=== PATIENT | male | born 1955 | race Caucasian/White ===

== ENCOUNTER 2020-07-28 09:51 | Emergency (ER) | payer MEDICARE ==
[~2020-07-28] VITALS: Ht 170.2 cm; Wt 79.5 kg
[2020-07-28 10:14] VITALS: BP 125/88
[2020-07-28] MEDS ORDERED: acetaminophen 325mg tablet PO ONE (11:15)
[2020-07-28] MEDS ORDERED: ibuprofen tablet 400 MG TABLET PO ONE (11:15)
[2020-07-28] MEDS ORDERED: ibuprofen 200mg tablet PO ONE (11:25)
== END 2020-07-28 11:37 | disposition home or self-care (01) ==
LOC: ER 09:52
DX: M25.561 Pain in right knee (principal)
CPT/HCPCS: 73564; 99284

== ENCOUNTER 2020-09-16 11:38 | Emergency (ER) | payer MEDICARE ==
[~2020-09-16] VITALS: Ht 177.8 cm; Wt 81.8 kg
[2020-09-16 11:42] VITALS: BP 145/77
== END 2020-09-16 14:42 | disposition home or self-care (01) ==
LOC: ER 11:38
DX: T69.9XXA Effect of reduced temperature, unspecified, initial encounter (principal); W19.XXXA Unspecified fall, initial encounter; Y93.89 Activity, other specified; Y92.89 Other specified places as the place of occurrence of the external cause; Y99.8 Other external cause status
CPT/HCPCS: 99284

== ENCOUNTER 2021-04-17 09:12 | Inpatient (IN) | payer MEDICARE, MEDICAID ==
[~2021-04-17] VITALS: Ht 172.7 cm; Wt 81.8 kg
[~2021-04-17 09:12] MED LIST: LACT1CAP26 PO
[2021-04-17] MEDS ORDERED: acetaminophen 325mg tablet PO ONE (10:40)
[2021-04-17 11:25] LABS: BASOPHILS # (AUTO) 0.1 X10'3 (0-0.2); BASOPHILS % (AUTO) 0.3 % (0-1); EOSINOPHILS % (AUTO) 0 % (0-6); HEMATOCRIT 44.4 % (42.0-52.0); HEMOGLOBIN 15.3 g/dl (14.0-17.9); LYMPHOCYTES # (AUTO) 0.5 X10'3 (1.1-4.8); LYMPHOCYTES % (AUTO) 2.1 % (21-51); MEAN CORPUSCULAR HEMOGLOBIN 31.1 PG (27.0-31.0); MEAN CORPUSCULAR HGB CONC 34.5 g/dL (33.0-36.5); MEAN PLATELET VOLUME 6.7 FL (7.4-10.4); MONOCYTES # (AUTO) 1.1 X10'3 (0-0.9); MONOCYTES % (AUTO) 4.4 % (2-12); NEUTROPHILS # (AUTO) 23.3 X10'3 (1.8-7.7); NEUTROPHILS % (AUTO) 93.2 % (42-75); PLATELET COUNT 359 X10'3 (140-440); RED BLOOD COUNT 4.93 X10'6 (4.70-6.10); RED CELL DISTRIBUTION WIDTH 13.8 % (11.5-14.5)
[2021-04-17] MEDS ORDERED: normal saline 1000ML IV soln IVB ONE ×2 (11:35)
[2021-04-17] MEDS ORDERED: CefTRIAXone/D5W-Rocephin 1gm 50 ML IV ONE ×2 (11:35→13:00)
[2021-04-17 11:39] LABS: ALANINE AMINOTRANSFERASE 24 U/L (12-78); ALBUMIN 4.2 G/DL (3.4-5.0); ALBUMIN/GLOBULIN RATIO 0.9 (1.1-1.5); ALKALINE PHOSPHATASE 64 IU/L (46-116); ANION GAP 13 (8-16); ASPARTATE AMINO TRANSFERASE 17 U/L (10-37); BILIRUBIN,TOTAL 0.7 MG/DL (0.1-1.0); BLOOD UREA NITROGEN 23 MG/DL (7-18); BUN/CREATININE RATIO 15.5 (5.4-32.0); CALCIUM 9.4 MG/DL (8.5-10.1); CHLORIDE 93 MMOL/L (99-107); CREATININE 1.48 MG/DL (0.60-1.10); GLUCOSE 153 MG/DL (70-104); POTASSIUM 4.6 MMOL/L (3.5-5.1); SODIUM 130 MMOL/L (135-145); eGFR 47 ML/MIN
[2021-04-17] MEDS ORDERED: vancomycin/NS 1 GM ADD-VANTAGE 250 ML X 1 DOSE IV ONE (12:45)
[2021-04-17] MEDS ORDERED: METF-950 PO (12:45)
[2021-04-17] MEDS ORDERED: MEMA10TA56 PO (12:45)
[2021-04-17] MEDS ORDERED: LISI20TA28 PO (12:45)
[2021-04-17] MEDS ORDERED: acetaminophen 325mg tablet PO PRN (12:50)
[2021-04-17] MEDS ORDERED: magnesium hydroxide 30ml (MOM) UD suspension PO PRN (12:50)
[2021-04-17] MEDS ORDERED: ondansetron/PF 4mg/2ml inj IV PRN (12:50)
[2021-04-17] MEDS ORDERED: mag hydrox/Alum hydrox/simeth 30ml oral suspension PO PRN (12:50)
[2021-04-17] MEDS ORDERED: potassium Cl 20 mEq SR tablet PO PRN ×2 (12:50)
[2021-04-17] MEDS ORDERED: potassium Cl 40MEQ/1/2NS 520ml 520 ML IV PRN ×2 (12:50)
[2021-04-17 13:02] LABS: CLARITY,URINE CLEAR (Clear); COLOR,URINE YELLOW (Yellow); GLUCOSE, URINE NEGATIVE (Neg); KETONES,URINE NEGATIVE (Neg); LEUKOCYTE ESTERASE ,URINE NEGATIVE (Neg); NITRITES, URINE NEGATIVE (Neg); OCCULT BLOOD,URINE MODERATE (Neg); PH,URINE 5.5 (4.8-8.0); PROTEIN,URINE 100 mg/dl (Neg)
[2021-04-17 13:07] LABS: UA COLLECTION TYPE NON-SPECIFIED
[2021-04-17 13:12] LABS: HYALINE CASTS 0-3 /LPF (NEGATIVE)
[2021-04-17 13:13] LABS: BACTERIA,URINE NONE SEEN /HPF (Neg); MUCUS STRANDS MODERATE /LPF (Neg); SQUAMOUS EPITHELIAL CELL,UR FEW /LPF (FEW); WBC,URINE 0-4 /HPF (0-4)
[2021-04-17] MEDS ORDERED: cyanocobalamin 1,000 mcg/ml inj IM ONE (13:20)
[2021-04-17] MEDS: normal saline 1000ml 1,000 ML IV SCH ×2 (15:21→22:50)
[2021-04-17] MEDS: memantine 5mg tablet PO SCH (19:28)
[2021-04-17] MEDS: docusate sod 100mg capsule PO SCH (19:28)
[2021-04-17] MEDS: heparin, porcine 5000 units/ml vial SQ SCH (19:29)
[2021-04-17] MEDS: K and/or MAG REPLACEMENT MC SCH (19:30)
[2021-04-18 06:57] LABS: BASOPHILS % (AUTO) 0.2 % (0-1); EOSINOPHILS % (AUTO) 0 % (0-6); HEMATOCRIT 36.9 % (42.0-52.0); HEMOGLOBIN 13.1 g/dl (14.0-17.9); LYMPHOCYTES # (AUTO) 0.9 X10'3 (1.1-4.8); LYMPHOCYTES % (AUTO) 5.9 % (21-51); MEAN CORPUSCULAR HEMOGLOBIN 31.4 PG (27.0-31.0); MEAN CORPUSCULAR HGB CONC 35.4 g/dL (33.0-36.5); MEAN CORPUSCULAR VOLUME 88.5 FL (78-98); MEAN PLATELET VOLUME 6.9 FL (7.4-10.4); MONOCYTES # (AUTO) 0.8 X10'3 (0-0.9); MONOCYTES % (AUTO) 5.2 % (2-12); NEUTROPHILS # (AUTO) 13.8 X10'3 (1.8-7.7); NEUTROPHILS % (AUTO) 88.7 % (42-75); PLATELET COUNT 256 X10'3 (140-440); RED BLOOD COUNT 4.17 X10'6 (4.70-6.10); RED CELL DISTRIBUTION WIDTH 13.8 % (11.5-14.5); WHITE BLOOD COUNT 15.6 X10'3 (4.5-11.0)
[2021-04-18 07:03] LABS: ALANINE AMINOTRANSFERASE 19 U/L (12-78); ALBUMIN 3.3 G/DL (3.4-5.0); ALBUMIN/GLOBULIN RATIO 0.8 (1.1-1.5); ALKALINE PHOSPHATASE 60 IU/L (46-116); ANION GAP 9 (8-16); ASPARTATE AMINO TRANSFERASE 14 U/L (10-37); BILIRUBIN,TOTAL 0.6 MG/DL (0.1-1.0); BLOOD UREA NITROGEN 17 MG/DL (7-18); CALCIUM 8.8 MG/DL (8.5-10.1); CHLORIDE 97 MMOL/L (99-107); CREATININE 1.21 MG/DL (0.60-1.10); GLUCOSE 122 MG/DL (70-104); POTASSIUM 4.2 MMOL/L (3.5-5.1); SODIUM 131 MMOL/L (135-145); TOTAL CARBON DIOXIDE 24.8 MMOL/L (24-32); TOTAL PROTEIN 7.3 G/DL (6.4-8.2); eGFR 60 ML/MIN
[2021-04-18] MEDS: normal saline 1000ml 1,000 ML IV SCH (08:50)
[2021-04-18] MEDS: lisinopril 20mg tablet PO SCH (10:54)
[2021-04-18] MEDS: CefTRIAXone/D5W-Rocephin 1gm 50 ML IV SCH (10:55)
[2021-04-18] MEDS: docusate sod 100mg capsule PO SCH ×2 (10:55→23:44)
[2021-04-18] MEDS: heparin, porcine 5000 units/ml vial SQ SCH ×2 (10:59→23:43)
[2021-04-18] MEDS: vancomycin/NS 1 GM ADD-VANTAGE 250 ML IV SCH ×2 (11:00→23:41)
[2021-04-18] MEDS: memantine 5mg tablet PO SCH ×2 (11:09→23:43)
[2021-04-18] MEDS: K and/or MAG REPLACEMENT MC SCH ×2 (11:09→20:00)
--- NOTE | 2021-04-18 12:45 | NUR ---
PATIENT IN BED RR EVEN UN LABORED NO OBSERVABLE S/S OF ACUTE STRESS AT THIS TIME WILL CONTINUE TO MONITOR DENIES PAIN
[2021-04-18] MEDS ORDERED: vancomycin/NS 1 GM ADD-VANTAGE 250 ML IV SCH (13:00)
--- NOTE | 2021-04-18 14:00 | NUR ---
pATIENT HAD 100% LUNCH PATIENT HAS NO CONCERNS AT THIS TIME WILL CONTINUE TO MONITOR
--- NOTE | 2021-04-18 15:21 | NUR ---
PATIENT bg 119 GLUCOMETER REQUESTED A DOWNTIME OVERRIDE FORM FILLED OUT COMPLETE PATIEN THAS NO OBSERVABLE S/S OF ACUTE STRESS/PAIN AT THIS TIME WILL CONTINUE TO MONITOR
[2021-04-18] MEDS: lactobacillus rhamnosus 10,000 MMU CELLS/CAPSULE PO SCH (23:44)
--- NOTE | 2021-04-19 01:52 | NUR ---
pt awake at this time, given urinal as requested.
[2021-04-19 04:33] LABS: BASOPHILS % (AUTO) 0.5 % (0-1); EOSINOPHILS # (AUTO) 0.1 X10'3 (0-0.9); EOSINOPHILS % (AUTO) 0.7 % (0-6); HEMATOCRIT 33.5 % (42.0-52.0); HEMOGLOBIN 11.6 g/dl (14.0-17.9); LYMPHOCYTES # (AUTO) 0.9 X10'3 (1.1-4.8); LYMPHOCYTES % (AUTO) 9.7 % (21-51); MEAN CORPUSCULAR HEMOGLOBIN 31.1 PG (27.0-31.0); MEAN CORPUSCULAR HGB CONC 34.5 g/dL (33.0-36.5); MEAN CORPUSCULAR VOLUME 90.3 FL (78-98); MEAN PLATELET VOLUME 7.2 FL (7.4-10.4); MONOCYTES # (AUTO) 0.6 X10'3 (0-0.9); MONOCYTES % (AUTO) 6.5 % (2-12); NEUTROPHILS # (AUTO) 7.7 X10'3 (1.8-7.7); NEUTROPHILS % (AUTO) 82.6 % (42-75); PLATELET COUNT 236 X10'3 (140-440); RED BLOOD COUNT 3.71 X10'6 (4.70-6.10); RED CELL DISTRIBUTION WIDTH 13.8 % (11.5-14.5); WHITE BLOOD COUNT 9.4 X10'3 (4.5-11.0)
[2021-04-19 04:56] LABS: ALANINE AMINOTRANSFERASE 23 U/L (12-78); ALBUMIN 2.7 G/DL (3.4-5.0); ALBUMIN/GLOBULIN RATIO 0.7 (1.1-1.5); ALKALINE PHOSPHATASE 58 IU/L (46-116); ANION GAP 11 (8-16); ASPARTATE AMINO TRANSFERASE 18 U/L (10-37); BILIRUBIN,TOTAL 0.5 MG/DL (0.1-1.0); BLOOD UREA NITROGEN 15 MG/DL (7-18); BUN/CREATININE RATIO 15.3 (5.4-32.0); CHLORIDE 98 MMOL/L (99-107); CREATININE 0.98 MG/DL (0.60-1.10); GLUCOSE 101 MG/DL (70-104); POTASSIUM 3.9 MMOL/L (3.5-5.1); SODIUM 131 MMOL/L (135-145); TOTAL CARBON DIOXIDE 21.9 MMOL/L (24-32); TOTAL PROTEIN 6.6 G/DL (6.4-8.2); eGFR 76 ML/MIN
[2021-04-19] MEDS: K and/or MAG REPLACEMENT MC SCH ×2 (08:00→20:00)
[2021-04-19] MEDS: CefTRIAXone/D5W-Rocephin 1gm 50 ML IV SCH (08:00)
[2021-04-19] MEDS: docusate sod 100mg capsule PO SCH ×2 (12:14→21:11)
[2021-04-19] MEDS: memantine 5mg tablet PO SCH ×2 (12:16→21:13)
[2021-04-19] MEDS: lisinopril 20mg tablet PO SCH ×2 (12:16→21:12)
[2021-04-19] MEDS: heparin, porcine 5000 units/ml vial SQ SCH ×2 (12:20→21:14)
[2021-04-19] MEDS: vancomycin/NS 1 GM ADD-VANTAGE 250 ML IV SCH (12:20)
[2021-04-19] MEDS: lactobacillus rhamnosus 10,000 MMU CELLS/CAPSULE PO SCH ×2 (12:54→21:13)
[2021-04-19 13:40] VITALS: BP 138/78
[2021-04-19] MEDS: normal saline 1000ml 1,000 ML IV SCH ×2 (14:50→17:07)
--- NOTE | 2021-04-19 15:17 | NUR ---
Per Madelaine LOPEZ at [facility] (took over the care from ER), the Rocephin IV dose this am was already given. Patient came to the unit with the Vanco IV running
--- NOTE | 2021-04-19 18:11 | NUR ---
Patient in room [facility]. I have received report from ALVAREZ LOPEZ and had the opportunity to ask questions and assume patient care. Addendum: 04/19/21 at 1811 by Mona Bunn RN Amended: Links added.
--- NOTE | 2021-04-19 18:19 | NUR ---
Problems reprioritized. Patient report given, questions answered & plan of care reviewed with Mona LOPEZ.
[2021-04-19 19:00] VITALS: BP 124/81
[2021-04-19] MEDS ORDERED: pneumococcal 23-VAL P-sac vacc 25 mcg/0.5ml vial IMVAC ONE (20:00)
--- NOTE | 2021-04-19 21:10 | NUR ---
PT TOOK HS MEDS AND MRSA SWAB DONE AND SAID HE WANTED THE PNEUMONIA VACCINE AND GIVEN TO THE PT ALONG WITH INFORMATION AND TEACHING.
[2021-04-19] MEDS ORDERED: VANCOMYCIN LEVEL IV ONE (22:30)
--- NOTE | 2021-04-19 23:10 | NUR ---
pt awake watching tv no complaints.
[2021-04-20] VITALS: BP 158/86
[2021-04-20] MEDS: vancomycin/NS 1 GM ADD-VANTAGE 250 ML IV SCH (00:01)
[2021-04-20] MEDS: normal saline 1000ml 1,000 ML IV SCH ×4 (00:50→20:50)
--- NOTE | 2021-04-20 01:00 | NUR ---
pt resting eyes closed without changes.
--- NOTE | 2021-04-20 04:40 | NUR ---
resting eyes closed appears comfortable at this time.
--- NOTE | 2021-04-20 06:46 | NUR ---
Problems reprioritized. Patient report given, questions answered & plan of care reviewed with JESSICA WILSON. Addendum: 04/20/21 at 0647 by Mona Bunn RN Amended: Links added.
[2021-04-20 06:49] LABS: BASOPHILS % (AUTO) 0.6 % (0-1); EOSINOPHILS # (AUTO) 0.4 X10'3 (0-0.9); EOSINOPHILS % (AUTO) 5.2 % (0-6); HEMATOCRIT 35.5 % (42.0-52.0); HEMOGLOBIN 12.1 g/dl (14.0-17.9); LYMPHOCYTES # (AUTO) 1.1 X10'3 (1.1-4.8); LYMPHOCYTES % (AUTO) 16.2 % (21-51); MEAN CORPUSCULAR HEMOGLOBIN 30.8 PG (27.0-31.0); MEAN CORPUSCULAR HGB CONC 34.1 g/dL (33.0-36.5); MEAN CORPUSCULAR VOLUME 90.3 FL (78-98); MEAN PLATELET VOLUME 7.1 FL (7.4-10.4); MONOCYTES # (AUTO) 0.8 X10'3 (0-0.9); MONOCYTES % (AUTO) 10.8 % (2-12); NEUTROPHILS # (AUTO) 4.8 X10'3 (1.8-7.7); NEUTROPHILS % (AUTO) 67.2 % (42-75); PLATELET COUNT 252 X10'3 (140-440); RED BLOOD COUNT 3.93 X10'6 (4.70-6.10); RED CELL DISTRIBUTION WIDTH 13.8 % (11.5-14.5); WHITE BLOOD COUNT 7.1 X10'3 (4.5-11.0)
--- NOTE | 2021-04-20 06:53 | NUR ---
Patient in room [facility]. I have received report from RAJ LOPEZ and had the opportunity to ask questions and assume patient care.
[2021-04-20 07:10] LABS: ALANINE AMINOTRANSFERASE 32 U/L (12-78); ALBUMIN 2.8 G/DL (3.4-5.0); ALBUMIN/GLOBULIN RATIO 0.7 (1.1-1.5); ALKALINE PHOSPHATASE 56 IU/L (46-116); ANION GAP 9 (8-16); ASPARTATE AMINO TRANSFERASE 21 U/L (10-37); BILIRUBIN,TOTAL 0.3 MG/DL (0.1-1.0); BLOOD UREA NITROGEN 13 MG/DL (7-18); BUN/CREATININE RATIO 13.5 (5.4-32.0); CALCIUM 8.5 MG/DL (8.5-10.1); CHLORIDE 104 MMOL/L (99-107); CREATININE 0.96 MG/DL (0.60-1.10); GLUCOSE 99 MG/DL (70-104); SODIUM 136 MMOL/L (135-145); TOTAL CARBON DIOXIDE 23.5 MMOL/L (24-32); TOTAL PROTEIN 6.7 G/DL (6.4-8.2); eGFR 78 ML/MIN
[2021-04-20 07:14] VITALS: BP 133/80
[2021-04-20] MEDS: K and/or MAG REPLACEMENT MC SCH ×2 (08:00→20:00)
[2021-04-20 08:07] LABS: HEMOGLOBIN A1C 5.6 % (4.5-6.2)
[2021-04-20] MEDS: memantine 5mg tablet PO SCH ×2 (09:51→20:40)
[2021-04-20] MEDS: lactobacillus rhamnosus 10,000 MMU CELLS/CAPSULE PO SCH ×2 (09:51→20:40)
[2021-04-20] MEDS: docusate sod 100mg capsule PO SCH ×2 (09:51→20:40)
[2021-04-20] MEDS: heparin, porcine 5000 units/ml vial SQ SCH ×2 (09:53→20:40)
[2021-04-20] MEDS: cefazolin/dext.iso 2gm/100ml 100 ML IV SCH ×3 (09:58→23:51)
--- NOTE | 2021-04-20 12:10 | NUR ---
DM consult: Pt with A1c 5.6%, DM education not warranted. Noted pt on a CHO controlled diet. Attempted TC to RN to discuss recommendation for diet advancement to regular given current A1c however RN unavailable, left message with sr community manager. Will continue to follow. Addendum: 04/20/21 at [address] Amended: Links added.
--- NOTE | 2021-04-20 12:11 | NUR ---
DM consult: Pt with A1c 5.6%, down from 7.2% 12/08/20 per EMR, DM education not warranted. Noted pt on a CHO controlled diet. Attempted TC to RN to discuss recommendation for diet advancement to regular given current A1c however RN unavailable, left message with community recreation programmer. Will continue to follow. Addendum: 04/20/21 at [address] Amended: Links added.
[2021-04-20] MEDS: VANCOmycin 1250MG/NS 250ml Bag 250 ML IV SCH (13:07)
[2021-04-20 18:00] VITALS: BP 152/87
[2021-04-20 18:09] VITALS: BP 128/74
--- NOTE | 2021-04-20 19:05 | NUR ---
Patient in room [facility]. I have received report from JESSICA Titus and had the opportunity to ask questions and assume patient care.
[2021-04-21] VITALS: BP 152/94
[2021-04-21] MEDS: VANCOmycin 1250MG/NS 250ml Bag 250 ML IV SCH ×3 (00:59→23:04)
[2021-04-21] MEDS: normal saline 1000ml 1,000 ML IV SCH ×2 (05:33→16:50)
[2021-04-21 06:14] LABS: BASOPHILS % (AUTO) 0.5 % (0-1); EOSINOPHILS # (AUTO) 0.5 X10'3 (0-0.9); EOSINOPHILS % (AUTO) 5.4 % (0-6); HEMATOCRIT 34.8 % (42.0-52.0); LYMPHOCYTES # (AUTO) 1.2 X10'3 (1.1-4.8); LYMPHOCYTES % (AUTO) 13.5 % (21-51); MEAN CORPUSCULAR HEMOGLOBIN 30.8 PG (27.0-31.0); MEAN CORPUSCULAR HGB CONC 34.3 g/dL (33.0-36.5); MEAN CORPUSCULAR VOLUME 89.7 FL (78-98); MONOCYTES % (AUTO) 11.8 % (2-12); NEUTROPHILS # (AUTO) 5.9 X10'3 (1.8-7.7); NEUTROPHILS % (AUTO) 68.8 % (42-75); PLATELET COUNT 253 X10'3 (140-440); RED BLOOD COUNT 3.88 X10'6 (4.70-6.10); RED CELL DISTRIBUTION WIDTH 13.9 % (11.5-14.5); WHITE BLOOD COUNT 8.6 X10'3 (4.5-11.0)
--- NOTE | 2021-04-21 06:35 | NUR ---
Problems reprioritized. Patient report given, questions answered & plan of care reviewed with JESSICA Romero.
[2021-04-21 06:41] LABS: ALANINE AMINOTRANSFERASE 27 U/L (12-78); ALBUMIN 2.7 G/DL (3.4-5.0); ALBUMIN/GLOBULIN RATIO 0.7 (1.1-1.5); ALKALINE PHOSPHATASE 62 IU/L (46-116); ANION GAP 10 (8-16); ASPARTATE AMINO TRANSFERASE 18 U/L (10-37); BILIRUBIN,TOTAL 0.4 MG/DL (0.1-1.0); BLOOD UREA NITROGEN 11 MG/DL (7-18); BUN/CREATININE RATIO 11.7 (5.4-32.0); CALCIUM 8.5 MG/DL (8.5-10.1); CHLORIDE 103 MMOL/L (99-107); CREATININE 0.94 MG/DL (0.60-1.10); GLUCOSE 109 MG/DL (70-104); SODIUM 137 MMOL/L (135-145); TOTAL CARBON DIOXIDE 23.7 MMOL/L (24-32); TOTAL PROTEIN 6.6 G/DL (6.4-8.2); eGFR 80 ML/MIN
[2021-04-21 07:00] VITALS: BP 119/78
[2021-04-21] MEDS: K and/or MAG REPLACEMENT MC SCH ×2 (08:00→19:46)
--- NOTE | 2021-04-21 10:00 | NUR ---
Initial: Pt admit for right leg cellulitis. Currently on a CHO controlled diet documented with 100% PO intake. D/w RN recommendation for diet advancement to regular given A1c 5.6% with BG range 90-153 mg/dL since admit. [facility] 04/20, receiving routine bowel care. No nutrition intervention implemented at this time. Will continue to follow. Recommendations: 1) Advance to regular diet given A1c 5.6% and BG levels well controlled throughout LOS 2) Monitor need for additional protein for satiety 3) Routine bowel care 4) Weekly scaled weights Addendum: 04/21/21 at [address] Amended: Links added.
[2021-04-21 11:00] VITALS: BP 110/72
[2021-04-21] MEDS: heparin, porcine 5000 units/ml vial SQ SCH ×2 (11:46→19:42)
[2021-04-21] MEDS: cefazolin/dext.iso 2gm/100ml 100 ML IV SCH ×2 (11:46→16:12)
[2021-04-21] MEDS: lisinopril 20mg tablet PO SCH (11:46)
[2021-04-21] MEDS: lactobacillus rhamnosus 10,000 MMU CELLS/CAPSULE PO SCH ×2 (11:46→19:41)
[2021-04-21] MEDS: docusate sod 100mg capsule PO SCH ×2 (11:46→19:41)
[2021-04-21] MEDS: memantine 5mg tablet PO SCH ×2 (11:47→19:41)
--- NOTE | 2021-04-21 18:35 | NUR ---
Problems reprioritized. Patient report given, questions answered & plan of care reviewed with JESSICA LAZARO.
--- NOTE | 2021-04-21 18:41 | NUR ---
Patient in room [facility]. I have received report from Heather LOPEZ and had the opportunity to ask questions and assume patient care.
[2021-04-21 19:01] VITALS: BP 151/79
[2021-04-21] MEDS ORDERED: VANCOMYCIN LEVEL IV ONE (22:30)
[2021-04-22] VITALS: BP 162/99
--- NOTE | 2021-04-22 00:30 | NUR ---
Patient in room [facility]. I have received report from TEJAS and had the opportunity to ask questions and assume patient care. PT RESTING AT THIS TIME, DENIES PAIN
--- NOTE | 2021-04-22 00:43 | NUR ---
Problems reprioritized. Patient report given, questions answered & plan of care reviewed with Michelle LOPEZ.
[2021-04-22] MEDS: cefazolin/dext.iso 2gm/100ml 100 ML IV SCH ×3 (01:33→17:39)
[2021-04-22] MEDS: normal saline 1000ml 1,000 ML IV SCH ×3 (02:50→22:50)
[2021-04-22 06:29] LABS: BASOPHILS # (AUTO) 0.1 X10'3 (0-0.2); BASOPHILS % (AUTO) 0.6 % (0-1); EOSINOPHILS # (AUTO) 0.6 X10'3 (0-0.9); EOSINOPHILS % (AUTO) 6.9 % (0-6); HEMATOCRIT 34.6 % (42.0-52.0); HEMOGLOBIN 11.7 g/dl (14.0-17.9); LYMPHOCYTES # (AUTO) 1.2 X10'3 (1.1-4.8); LYMPHOCYTES % (AUTO) 14.1 % (21-51); MEAN CORPUSCULAR HEMOGLOBIN 30.5 PG (27.0-31.0); MEAN CORPUSCULAR HGB CONC 33.8 g/dL (33.0-36.5); MEAN CORPUSCULAR VOLUME 90.2 FL (78-98); MEAN PLATELET VOLUME 7.3 FL (7.4-10.4); MONOCYTES % (AUTO) 11.3 % (2-12); NEUTROPHILS # (AUTO) 5.8 X10'3 (1.8-7.7); NEUTROPHILS % (AUTO) 67.1 % (42-75); PLATELET COUNT 289 X10'3 (140-440); RED BLOOD COUNT 3.84 X10'6 (4.70-6.10); WHITE BLOOD COUNT 8.6 X10'3 (4.5-11.0)
--- NOTE | 2021-04-22 06:34 | NUR ---
Problems reprioritized. Patient report given, questions answered & plan of care reviewed with
[2021-04-22 07:00] VITALS: BP 140/80
[2021-04-22 07:00] LABS: ALANINE AMINOTRANSFERASE 23 U/L (12-78); ALBUMIN 2.7 G/DL (3.4-5.0); ALBUMIN/GLOBULIN RATIO 0.7 (1.1-1.5); ALKALINE PHOSPHATASE 72 IU/L (46-116); ANION GAP 10 (8-16); ASPARTATE AMINO TRANSFERASE 16 U/L (10-37); BILIRUBIN,TOTAL 0.3 MG/DL (0.1-1.0); BLOOD UREA NITROGEN 11 MG/DL (7-18); BUN/CREATININE RATIO 11.6 (5.4-32.0); CALCIUM 8.5 MG/DL (8.5-10.1); CHLORIDE 105 MMOL/L (99-107); CREATININE 0.95 MG/DL (0.60-1.10); GLUCOSE 102 MG/DL (70-104); POTASSIUM 3.9 MMOL/L (3.5-5.1); SODIUM 140 MMOL/L (135-145); TOTAL CARBON DIOXIDE 25.3 MMOL/L (24-32); TOTAL PROTEIN 6.8 G/DL (6.4-8.2); eGFR 79 ML/MIN
[2021-04-22] MEDS: K and/or MAG REPLACEMENT MC SCH ×2 (08:00→19:28)
[2021-04-22] MEDS: docusate sod 100mg capsule PO SCH ×2 (08:00→19:26)
[2021-04-22] MEDS: memantine 5mg tablet PO SCH ×2 (08:36→19:26)
[2021-04-22] MEDS: lactobacillus rhamnosus 10,000 MMU CELLS/CAPSULE PO SCH ×2 (08:36→19:26)
[2021-04-22] MEDS: lisinopril 20mg tablet PO SCH (08:37)
[2021-04-22] MEDS: heparin, porcine 5000 units/ml vial SQ SCH ×2 (08:38→19:26)
[2021-04-22 11:00] VITALS: BP 138/79
[2021-04-22] MEDS: VANCOmycin 1250MG/NS 250ml Bag 250 ML IV SCH ×2 (14:30→23:26)
[2021-04-22 18:00] VITALS: BP 143/92
--- NOTE | 2021-04-22 18:47 | NUR ---
Patient in room [facility]. I have received report from Nicole LOPEZ and had the opportunity to ask questions and assume patient care.
--- NOTE | 2021-04-22 19:16 | NUR ---
pleasant day with patient up and about had shower no c/o pain in right lower leg. Continues with antibiotics as ordered. Report given to Marsha LOPEZ
[2021-04-22 22:00] VITALS: BP 145/92
[2021-04-23] MEDS: cefazolin/dext.iso 2gm/100ml 100 ML IV SCH ×3 (01:16→16:43)
[2021-04-23] MEDS: normal saline 1000ml 1,000 ML IV SCH ×2 (04:27→18:50)
[2021-04-23 06:00] VITALS: BP 128/87
--- NOTE | 2021-04-23 06:32 | NUR ---
Problems reprioritized. Patient report given, questions answered & plan of care reviewed with Lissett LOPEZ.
[2021-04-23] MEDS: K and/or MAG REPLACEMENT MC SCH ×2 (08:00→20:00)
[2021-04-23 08:36] LABS: BASOPHILS # (AUTO) 0.1 X10'3 (0-0.2); BASOPHILS % (AUTO) 0.7 % (0-1); EOSINOPHILS # (AUTO) 0.7 X10'3 (0-0.9); EOSINOPHILS % (AUTO) 8.3 % (0-6); HEMATOCRIT 33.6 % (42.0-52.0); HEMOGLOBIN 11.7 g/dl (14.0-17.9); LYMPHOCYTES # (AUTO) 1.3 X10'3 (1.1-4.8); MEAN CORPUSCULAR HEMOGLOBIN 30.9 PG (27.0-31.0); MEAN CORPUSCULAR HGB CONC 34.7 g/dL (33.0-36.5); MONOCYTES # (AUTO) 0.8 X10'3 (0-0.9); NEUTROPHILS # (AUTO) 5.9 X10'3 (1.8-7.7); PLATELET COUNT 318 X10'3 (140-440); RED BLOOD COUNT 3.78 X10'6 (4.70-6.10); WHITE BLOOD COUNT 8.8 X10'3 (4.5-11.0)
[2021-04-23] MEDS: memantine 5mg tablet PO SCH ×2 (08:39→22:04)
[2021-04-23] MEDS: docusate sod 100mg capsule PO SCH ×2 (08:39→22:05)
[2021-04-23] MEDS: lactobacillus rhamnosus 10,000 MMU CELLS/CAPSULE PO SCH ×2 (08:40→22:05)
[2021-04-23] MEDS: heparin, porcine 5000 units/ml vial SQ SCH ×2 (08:40→22:06)
[2021-04-23] MEDS: lisinopril 20mg tablet PO SCH (08:41)
[2021-04-23 08:48] LABS: ALANINE AMINOTRANSFERASE 16 U/L (12-78); ALBUMIN 2.7 G/DL (3.4-5.0); ALBUMIN/GLOBULIN RATIO 0.6 (1.1-1.5); ALKALINE PHOSPHATASE 69 IU/L (46-116); ANION GAP 10 (8-16); ASPARTATE AMINO TRANSFERASE 12 U/L (10-37); BILIRUBIN,TOTAL 0.3 MG/DL (0.1-1.0); BLOOD UREA NITROGEN 11 MG/DL (7-18); BUN/CREATININE RATIO 9.7 (5.4-32.0); CALCIUM 8.7 MG/DL (8.5-10.1); CHLORIDE 105 MMOL/L (99-107); CREATININE 1.13 MG/DL (0.60-1.10); GLUCOSE 177 MG/DL (70-104); POTASSIUM 3.9 MMOL/L (3.5-5.1); SODIUM 139 MMOL/L (135-145); TOTAL CARBON DIOXIDE 23.8 MMOL/L (24-32); eGFR 65 ML/MIN
[2021-04-23 10:00] VITALS: BP 125/73
[2021-04-23] MEDS: VANCOmycin 1250MG/NS 250ml Bag 250 ML IV SCH (11:00)
[2021-04-23 19:00] VITALS: BP 109/80
[2021-04-23 22:00] VITALS: BP 125/72
[2021-04-23] MEDS: clotrimazole topical cream 15gm tube TP SCH (22:06)
[2021-04-24] MEDS: cefazolin/dext.iso 2gm/100ml 100 ML IV SCH ×3 (00:12→15:57)
[2021-04-24] MEDS: normal saline 1000ml 1,000 ML IV SCH ×2 (04:57→15:57)
[2021-04-24 06:40] VITALS: BP 122/70
--- NOTE | 2021-04-24 06:40 | NUR ---
Patient in room [facility]. I have received report from Amy RN and had the opportunity to ask questions and assume patient care.
[2021-04-24 06:50] LABS: BASOPHILS # (AUTO) 0.1 X10'3 (0-0.2); BASOPHILS % (AUTO) 0.8 % (0-1); EOSINOPHILS # (AUTO) 0.6 X10'3 (0-0.9); EOSINOPHILS % (AUTO) 7.5 % (0-6); HEMATOCRIT 30.1 % (42.0-52.0); HEMOGLOBIN 10.4 g/dl (14.0-17.9); LYMPHOCYTES # (AUTO) 1.5 X10'3 (1.1-4.8); LYMPHOCYTES % (AUTO) 19.2 % (21-51); MEAN CORPUSCULAR HEMOGLOBIN 30.6 PG (27.0-31.0); MEAN CORPUSCULAR HGB CONC 34.5 g/dL (33.0-36.5); MEAN CORPUSCULAR VOLUME 88.7 FL (78-98); MEAN PLATELET VOLUME 7.1 FL (7.4-10.4); MONOCYTES # (AUTO) 0.9 X10'3 (0-0.9); MONOCYTES % (AUTO) 11.5 % (2-12); NEUTROPHILS # (AUTO) 4.7 X10'3 (1.8-7.7); PLATELET COUNT 356 X10'3 (140-440); RED BLOOD COUNT 3.39 X10'6 (4.70-6.10); RED CELL DISTRIBUTION WIDTH 13.9 % (11.5-14.5); WHITE BLOOD COUNT 7.7 X10'3 (4.5-11.0)
[2021-04-24 07:13] LABS: ALANINE AMINOTRANSFERASE 17 U/L (12-78); ALBUMIN 2.5 G/DL (3.4-5.0); ALBUMIN/GLOBULIN RATIO 0.6 (1.1-1.5); ALKALINE PHOSPHATASE 71 IU/L (46-116); ANION GAP 8 (8-16); ASPARTATE AMINO TRANSFERASE 14 U/L (10-37); BILIRUBIN,TOTAL 0.3 MG/DL (0.1-1.0); BLOOD UREA NITROGEN 11 MG/DL (7-18); BUN/CREATININE RATIO 12.1 (5.4-32.0); CALCIUM 8.4 MG/DL (8.5-10.1); CHLORIDE 107 MMOL/L (99-107); CREATININE 0.91 MG/DL (0.60-1.10); GLUCOSE 101 MG/DL (70-104); POTASSIUM 4.1 MMOL/L (3.5-5.1); SODIUM 140 MMOL/L (135-145); TOTAL CARBON DIOXIDE 25.5 MMOL/L (24-32); TOTAL PROTEIN 6.5 G/DL (6.4-8.2); eGFR 83 ML/MIN
[2021-04-24] MEDS: docusate sod 100mg capsule PO SCH ×2 (07:35→19:11)
[2021-04-24] MEDS: lactobacillus rhamnosus 10,000 MMU CELLS/CAPSULE PO SCH ×2 (07:35→19:11)
[2021-04-24] MEDS: memantine 5mg tablet PO SCH ×2 (07:35→19:12)
[2021-04-24] MEDS: heparin, porcine 5000 units/ml vial SQ SCH ×2 (07:36→19:12)
[2021-04-24] MEDS: K and/or MAG REPLACEMENT MC SCH ×2 (08:00→20:00)
[2021-04-24 10:23] VITALS: BP 123/80
[2021-04-24] MEDS: lisinopril 20mg tablet PO SCH (10:39)
[2021-04-24] MEDS: clotrimazole topical cream 15gm tube TP SCH ×2 (10:39→19:12)
[2021-04-24 18:00] VITALS: BP 132/69
--- NOTE | 2021-04-24 18:29 | NUR ---
Problems reprioritized. Patient report given, questions answered & plan of care reviewed with Masha LOPEZ.
--- NOTE | 2021-04-24 18:41 | NUR ---
Patient in room [facility]. I have received report from ANNALISA LOPEZ and had the opportunity to ask questions and assume patient care.
[2021-04-24 22:00] VITALS: BP 123/74
[2021-04-25] MEDS: cefazolin/dext.iso 2gm/100ml 100 ML IV SCH ×3 (01:11→15:26)
[2021-04-25] MEDS: normal saline 1000ml 1,000 ML IV SCH ×2 (03:00→15:17)
[2021-04-25 05:54] LABS: BASOPHILS # (AUTO) 0.1 X10'3 (0-0.2); BASOPHILS % (AUTO) 0.9 % (0-1); EOSINOPHILS # (AUTO) 0.5 X10'3 (0-0.9); EOSINOPHILS % (AUTO) 6.8 % (0-6); HEMATOCRIT 32.8 % (42.0-52.0); LYMPHOCYTES # (AUTO) 1.4 X10'3 (1.1-4.8); LYMPHOCYTES % (AUTO) 17.2 % (21-51); MEAN CORPUSCULAR HEMOGLOBIN 30.2 PG (27.0-31.0); MEAN CORPUSCULAR HGB CONC 33.6 g/dL (33.0-36.5); MEAN CORPUSCULAR VOLUME 90.1 FL (78-98); MEAN PLATELET VOLUME 6.6 FL (7.4-10.4); MONOCYTES # (AUTO) 0.9 X10'3 (0-0.9); MONOCYTES % (AUTO) 11.7 % (2-12); NEUTROPHILS % (AUTO) 63.4 % (42-75); PLATELET COUNT 400 X10'3 (140-440); RED BLOOD COUNT 3.64 X10'6 (4.70-6.10); RED CELL DISTRIBUTION WIDTH 13.5 % (11.5-14.5); WHITE BLOOD COUNT 7.9 X10'3 (4.5-11.0)
[2021-04-25 06:00] VITALS: BP 142/81
[2021-04-25 06:13] LABS: ALANINE AMINOTRANSFERASE 18 U/L (12-78); ALBUMIN 2.6 G/DL (3.4-5.0); ALBUMIN/GLOBULIN RATIO 0.6 (1.1-1.5); ALKALINE PHOSPHATASE 70 IU/L (46-116); ANION GAP 8 (8-16); ASPARTATE AMINO TRANSFERASE 18 U/L (10-37); BILIRUBIN,TOTAL 0.3 MG/DL (0.1-1.0); BLOOD UREA NITROGEN 9 MG/DL (7-18); BUN/CREATININE RATIO 9.3 (5.4-32.0); CALCIUM 8.5 MG/DL (8.5-10.1); CHLORIDE 106 MMOL/L (99-107); CREATININE 0.97 MG/DL (0.60-1.10); GLUCOSE 106 MG/DL (70-104); POTASSIUM 3.9 MMOL/L (3.5-5.1); SODIUM 140 MMOL/L (135-145); TOTAL CARBON DIOXIDE 26.2 MMOL/L (24-32); eGFR 77 ML/MIN
--- NOTE | 2021-04-25 06:35 | NUR ---
Problems reprioritized. Patient report given, questions answered & plan of care reviewed with PEARL.
--- NOTE | 2021-04-25 07:00 | NUR ---
Patient in room [facility] 4013[facility]. I have received report from JESSICA ZUNIGA and had the opportunity to ask questions and assume patient care.
[2021-04-25] MEDS: K and/or MAG REPLACEMENT MC SCH ×2 (08:00→20:00)
[2021-04-25] MEDS: docusate sod 100mg capsule PO SCH ×2 (08:46→22:47)
[2021-04-25] MEDS: memantine 5mg tablet PO SCH ×2 (08:46→22:48)
[2021-04-25] MEDS: lactobacillus rhamnosus 10,000 MMU CELLS/CAPSULE PO SCH ×2 (08:46→22:47)
[2021-04-25] MEDS: heparin, porcine 5000 units/ml vial SQ SCH ×2 (08:47→22:48)
[2021-04-25] MEDS: lisinopril 20mg tablet PO SCH (08:47)
[2021-04-25] MEDS: clotrimazole topical cream 15gm tube TP SCH ×2 (08:48→22:49)
[2021-04-25 10:00] VITALS: BP 124/79
--- NOTE | 2021-04-25 18:46 | NUR ---
Problems reprioritized. Patient report given, questions answered & plan of care reviewed with AURORA RN.
[2021-04-25 19:00] VITALS: BP 161/95
[2021-04-25 22:00] VITALS: BP 166/95
[2021-04-25 23:00] VITALS: BP 154/80
[2021-04-26] MEDS: cefazolin/dext.iso 2gm/100ml 100 ML IV SCH ×2 (00:35→08:06)
[2021-04-26] MEDS: normal saline 1000ml 1,000 ML IV SCH ×3 (04:50→14:35)
[2021-04-26 06:00] VITALS: BP 117/74
[2021-04-26 06:08] LABS: BASOPHILS # (AUTO) 0.1 X10'3 (0-0.2); BASOPHILS % (AUTO) 0.6 % (0-1); EOSINOPHILS # (AUTO) 0.4 X10'3 (0-0.9); EOSINOPHILS % (AUTO) 4.7 % (0-6); HEMATOCRIT 32.7 % (42.0-52.0); LYMPHOCYTES # (AUTO) 1.3 X10'3 (1.1-4.8); LYMPHOCYTES % (AUTO) 13.9 % (21-51); MEAN CORPUSCULAR HEMOGLOBIN 30.4 PG (27.0-31.0); MEAN CORPUSCULAR HGB CONC 33.7 g/dL (33.0-36.5); MEAN CORPUSCULAR VOLUME 90.3 FL (78-98); MEAN PLATELET VOLUME 7.3 FL (7.4-10.4); MONOCYTES # (AUTO) 1.1 X10'3 (0-0.9); NEUTROPHILS # (AUTO) 6.4 X10'3 (1.8-7.7); NEUTROPHILS % (AUTO) 68.8 % (42-75); PLATELET COUNT 415 X10'3 (140-440); RED BLOOD COUNT 3.61 X10'6 (4.70-6.10); RED CELL DISTRIBUTION WIDTH 13.7 % (11.5-14.5); WHITE BLOOD COUNT 9.3 X10'3 (4.5-11.0)
[2021-04-26 06:22] LABS: ALANINE AMINOTRANSFERASE 20 U/L (12-78); ALBUMIN 2.6 G/DL (3.4-5.0); ALBUMIN/GLOBULIN RATIO 0.6 (1.1-1.5); ALKALINE PHOSPHATASE 74 IU/L (46-116); ANION GAP 10 (8-16); ASPARTATE AMINO TRANSFERASE 18 U/L (10-37); BILIRUBIN,TOTAL 0.3 MG/DL (0.1-1.0); BLOOD UREA NITROGEN 11 MG/DL (7-18); BUN/CREATININE RATIO 12.1 (5.4-32.0); CALCIUM 8.6 MG/DL (8.5-10.1); CHLORIDE 103 MMOL/L (99-107); CREATININE 0.91 MG/DL (0.60-1.10); GLUCOSE 110 MG/DL (70-104); POTASSIUM 3.9 MMOL/L (3.5-5.1); SODIUM 138 MMOL/L (135-145); TOTAL CARBON DIOXIDE 25.5 MMOL/L (24-32); TOTAL PROTEIN 6.9 G/DL (6.4-8.2); eGFR 83 ML/MIN
--- NOTE | 2021-04-26 06:26 | NUR ---
Patient in room [facility] 4013[facility]. I have received report from JESSICA SIMON and had the opportunity to ask questions and assume patient care.
[2021-04-26] MEDS: K and/or MAG REPLACEMENT MC SCH ×2 (08:00→20:00)
[2021-04-26] MEDS: lisinopril 20mg tablet PO SCH (08:06)
[2021-04-26] MEDS: docusate sod 100mg capsule PO SCH ×2 (08:06→20:57)
[2021-04-26] MEDS: memantine 5mg tablet PO SCH ×2 (08:06→20:57)
[2021-04-26] MEDS: clotrimazole topical cream 15gm tube TP SCH ×2 (08:06→20:58)
[2021-04-26] MEDS: lactobacillus rhamnosus 10,000 MMU CELLS/CAPSULE PO SCH ×2 (08:06→20:58)
[2021-04-26] MEDS: heparin, porcine 5000 units/ml vial SQ SCH ×2 (08:07→20:57)
[2021-04-26 10:00] VITALS: BP 108/61
[2021-04-26] MEDS: penicillin V potassium 500mg tablet PO SCH ×2 (14:16→20:56)
[2021-04-26 18:00] VITALS: BP 154/88
--- NOTE | 2021-04-26 18:34 | NUR ---
Problems reprioritized. Patient report given, questions answered & plan of care reviewed with JESSICA HONEYCUTT.
[2021-04-27 01:00] VITALS: BP 136/82
[2021-04-27] MEDS: normal saline 1000ml 1,000 ML IV SCH (02:35)
[2021-04-27] MEDS: penicillin V potassium 500mg tablet PO SCH ×2 (02:36→08:32)
--- NOTE | 2021-04-27 06:24 | NUR ---
Patient in room [facility]. I have received report from Jessica LOPEZ and had the opportunity to ask questions and assume patient care.
[2021-04-27 06:27] LABS: BASOPHILS % (AUTO) 0.6 % (0-1); EOSINOPHILS # (AUTO) 0.4 X10'3 (0-0.9); EOSINOPHILS % (AUTO) 5.4 % (0-6); HEMATOCRIT 36.2 % (42.0-52.0); HEMOGLOBIN 12.4 g/dl (14.0-17.9); LYMPHOCYTES # (AUTO) 1.2 X10'3 (1.1-4.8); MEAN CORPUSCULAR HGB CONC 34.2 g/dL (33.0-36.5); MEAN CORPUSCULAR VOLUME 90.5 FL (78-98); MONOCYTES # (AUTO) 0.8 X10'3 (0-0.9); MONOCYTES % (AUTO) 10.6 % (2-12); NEUTROPHILS # (AUTO) 5.3 X10'3 (1.8-7.7); NEUTROPHILS % (AUTO) 68.4 % (42-75); PLATELET COUNT 449 X10'3 (140-440); RED CELL DISTRIBUTION WIDTH 13.5 % (11.5-14.5); WHITE BLOOD COUNT 7.7 X10'3 (4.5-11.0)
[2021-04-27 06:48] LABS: ALANINE AMINOTRANSFERASE 24 U/L (12-78); ALBUMIN 2.8 G/DL (3.4-5.0); ALBUMIN/GLOBULIN RATIO 0.6 (1.1-1.5); ALKALINE PHOSPHATASE 80 IU/L (46-116); ANION GAP 8 (8-16); BILIRUBIN,TOTAL 0.5 MG/DL (0.1-1.0); BLOOD UREA NITROGEN 10 MG/DL (7-18); BUN/CREATININE RATIO 9.7 (5.4-32.0); CALCIUM 8.9 MG/DL (8.5-10.1); CHLORIDE 102 MMOL/L (99-107); CREATININE 1.03 MG/DL (0.60-1.10); GLUCOSE 99 MG/DL (70-104); SODIUM 138 MMOL/L (135-145); TOTAL CARBON DIOXIDE 28.3 MMOL/L (24-32); TOTAL PROTEIN 7.8 G/DL (6.4-8.2); eGFR 72 ML/MIN
[2021-04-27 06:57] LABS: ASPARTATE AMINO TRANSFERASE 31 U/L (10-37); POTASSIUM 4.6 MMOL/L (3.5-5.1)
[2021-04-27] MEDS: K and/or MAG REPLACEMENT MC SCH (08:00)
[2021-04-27] MEDS: clotrimazole topical cream 15gm tube TP SCH (08:00)
[2021-04-27 08:25] VITALS: BP 136/87
[2021-04-27] MEDS: memantine 5mg tablet PO SCH (08:32)
[2021-04-27] MEDS: lactobacillus rhamnosus 10,000 MMU CELLS/CAPSULE PO SCH (08:32)
[2021-04-27] MEDS: docusate sod 100mg capsule PO SCH (08:32)
[2021-04-27] MEDS: lisinopril 20mg tablet PO SCH (08:32)
[2021-04-27] MEDS: heparin, porcine 5000 units/ml vial SQ SCH (08:33)
[2021-04-27] MEDS ORDERED: PENI-88 PO (09:21)
--- NOTE | 2021-04-27 09:50 | NUR ---
Reassessment: Pt PO 100% avg regular diet meeting needs. [facility] 04/26. No nutrition intervention at this time. Will continue to monitor. Recommendations: 1) Continue regular diet given A1c 5.6% and BG levels well controlled throughout LOS 2) Routine bowel care 3) Weekly scaled weights Addendum: 04/27/21 at [address] Amended: Links added.
[2021-04-27 11:00] VITALS: BP 141/89
--- NOTE | 2021-04-27 12:06 | NUR ---
Discharge instructions given to patient, patient verbalized understanding of all instructions made. Peripheral IV catheter removed, tip intact. New prescription was e-sent to the pharmacy on file. Report given to Ericka from [facility] where patient is going back. Instructed patient to ensure he has belongings with him before leaving the hospital. Patient's anticipated waste picker time is 13:30.
== END 2021-04-27 13:36 | DRG 871 ==
LOC: ER 09:12 → ED HOLD 12:59 → UNDOADMIN 12:59 → ED HOLD 04-18 01:20 → EDBEDREQ 04-19 08:22 → PAS IN 04-19 10:43 → ED HOLD 04-19 10:43 → PAS IN 04-19 13:10 → SUR 3N 04-19 13:10 → ED HOLD 04-20 12:18 → SUR 3N 04-20 12:18 → ORTHO 4S 04-22 16:37
PROVIDERS: ADMIT Internal Medicine; ATTEND Internal Medicine
PROC: 3E0234Z Introduction of Serum, Toxoid and Vaccine into Muscle, Percutaneous Approach (ICD-10-PCS; principal; 2021-04-19)
DX: A41.9 Sepsis, unspecified organism (principal); N17.0 Acute kidney failure with tubular necrosis; L03.115 Cellulitis of right lower limb; A46 Erysipelas; B35.1 Tinea unguium; B35.3 Tinea pedis; Z20.822 Contact with and (suspected) exposure to COVID-19; E11.628 Type 2 diabetes mellitus with other skin complications; F03.90 Unspecified dementia, unspecified severity, without behavioral disturbance, psychotic disturbance, mood disturbance, and anxiety; I10 Essential (primary) hypertension; R65.20 Severe sepsis without septic shock; Z79.4 Long term (current) use of insulin; Z86.73 Personal history of transient ischemic attack (TIA), and cerebral infarction without residual deficits; Z23 Encounter for immunization; Z79.899 Other long term (current) drug therapy
CPT/HCPCS: 36415; 71045; 80053; 80202; 81001; 82948; 83036; 83605; 84145; 85025; 87040; 87081; 87635; 93005; 93971; 99285; C9803; G0378; J0696; J1644; J3370; J3420; J7030